=== PATIENT | male | born 1950 | race African-American/Black ===

== ENCOUNTER 2016-06-19 05:20 | Emergency (ER) | payer OTHER ==
[~2016-06-19 05:20] MED LIST: ATAZ300C PO; EMTR1TAB6 PO; GABA600T PO; NYST5ORA PO; OXYC60TA8 PO; RITO100T PO
--- NOTE | 2016-06-19 05:30 | NUR ---
CALLED FOR TRIAGE; SLEEPING IN LOBBY.
--- NOTE | 2016-06-19 05:52 | NUR ---
REFUSED TO OBTAIN VS AND STATED "AM GONNA GO".
== END 2016-06-19 05:55 | disposition left against medical advice (07) ==
LOC: ER 05:23
DX: Z53.21 Procedure and treatment not carried out due to patient leaving prior to being seen by health care provider (principal)

== ENCOUNTER 2016-06-24 15:12 | Emergency (ER) | payer OTHER ==
[~2016-06-24] VITALS: Ht 182.9 cm; Wt 81.6 kg
[2016-06-24 15:34] VITALS: BP 154/71
--- NOTE | 2016-06-24 16:00 | NUR ---
PT BIB SELF C/O N/V SINCE LAST NIGHT S/P DRINKING "A WEIRD COKE". REPORTS POOR PO TOLERANCE SINCE THEN. DENIES ABDOMINAL PAIN. DENIES DIARRHEA. NAD NOTED. IN ER BED 03.
[2016-06-24] MEDS ORDERED: IV NS 0.9% 1,000 ML BAG IV ONE (16:30)
[2016-06-24] MEDS ORDERED: ONDANSETRON HCL/PF 4 MG/2 ML VIAL IVP ONE (16:30)
[2016-06-24 16:34] LABS: BASOPHILS % (AUTO) 0.5 % (0.0-2.0); EOSINOPHILS # (AUTO) 0.2 /CMM (0.0-0.7); EOSINOPHILS % (AUTO) 5.8 % (0.0-6.0); HEMATOCRIT 32 % (39-51); HEMOGLOBIN 10.6 g/dL (13.5-17.5); LYMPHOCYTES # (AUTO) 1.1 /CMM (0.8-4.8); LYMPHOCYTES % (AUTO) 29.5 % (20.0-44.0); MEAN CORPUSCULAR HEMOGLOBIN 29 PG (26.0-33.0); MEAN CORPUSCULAR HGB CONC 33 g/dl (31.0-36.0); MEAN CORPUSCULAR VOLUME 88 fL (80-96); MONOCYTES # (AUTO) 0.4 /CMM (0.1-1.30); MONOCYTES % (AUTO) 10.5 % (2.0-12.0); NEUTROPHILS # (AUTO) 2.1 /CMM (1.8-8.9); NEUTROPHILS % (AUTO) 53.7 % (43.0-81.0); PLATELET COUNT (AUTO) 271 /CMM (150-450); RDW COEFFICIENT OF VARIATION 12.2 (11.5-15.0); RED BLOOD CELL COUNT(AUTO) 3.65 MIL/uL (4.5-6.0); WHITE BLOOD COUNT (AUTO) 3.8 K/uL (4.3-11.0)
[2016-06-24] MEDS ORDERED: ONDANSETRON HCL/PF 4 MG/2 ML VIAL ONE (16:34)
[2016-06-24] MEDS ORDERED: IV SET PRIMARY 1 EA INFUS.SET MC ONE (16:34)
[2016-06-24] MEDS ORDERED: IV NS 0.9% 1,000 ML ONE (16:34)
[2016-06-24 16:44] LABS: CALCIUM, SERUM 8.7 mg/dL (8.5-10.1); CREATININE 0.8 mg/dL (0.6-1.3); POTASSIUM 3.6 mmol/L (3.5-5.1)
[2016-06-24 16:50] LABS: ALBUMIN 3.1 g/dL (3.4-5.0); BILIRUBIN,DIRECT 0.3 mg/dL (0.0-0.2); BILIRUBIN,TOTAL 1.7 mg/dL (0.2-1.0)
--- NOTE | 2016-06-24 17:44 | NUR ---
PT TOLERATED PO LIQUIDS
--- NOTE | 2016-06-24 18:21 | NUR ---
IV removed. Catheter intact and site benign. Pressure and 4x4 applied to site. No bleeding noted. PT WAS OFFERED CRACKERS AND APPLESAUCE, PER MD, WHICH MADE PT ANGRY AND HE REFUSED TO LEAVE UNTIL HE SPOKE WITH THE DR. PT SPOKE WITH DR RILEY WHO EDUCATED THAT HE SHOULD EAT BLAND/SOFT FOODS D/T CMOMPLAINT OF N/V. PT BECAME MORE AGITATED AND RUSHED OUT OF ER, REFUSING DISCHARGE PAPERWORK AND DISCHARGE VITAL SIGNS.
== END 2016-06-24 18:25 | disposition home or self-care (01) ==
LOC: ER 15:14
DX: R11.2 Nausea with vomiting, unspecified (principal); M54.5 Low back pain; G89.29 Other chronic pain; B19.20 Unspecified viral hepatitis C without hepatic coma; Z59.0 Homelessness
CPT/HCPCS: 36415; 80048; 80076; 83690; 85025; 96361; 96374; 99284; A4606; J2405; J7030; Z7610

== ENCOUNTER 2018-07-02 19:54 | Inpatient (IN) | payer MEDICARE, OTHER ==
[~2018-07-02] VITALS: Ht 182.9 cm; Wt 77.6 kg
--- NOTE | 2018-07-02 20:19 | NUR ---
MIDSTERNAL CP W/ SOB X 3 DAYS, RT LEG PAIN FOR COUPLE DAYS. STATES PAIN LEVEL 8/10 IN CHEST AND 9/10 IN LEG. SATTING AT 100% ON RA. SKIN INTACT, NO ACUTE DISTRESS NOTED. HOOKED TO MONITOR. READY FOR EVAL.
[2018-07-02 20:35] LABS: BASOPHILS % (AUTO) 0.6 % (0.0-2.0); EOSINOPHILS % (AUTO) 0.5 % (0.0-6.0); HEMATOCRIT 41 % (39-51); HEMOGLOBIN 13.4 g/dL (13.5-17.5); LYMPHOCYTES # (AUTO) 1.2 /CMM (0.8-4.8); LYMPHOCYTES % (AUTO) 25.4 % (20.0-44.0); MEAN CORPUSCULAR HGB CONC 32 g/dl (31.0-36.0); MEAN CORPUSCULAR VOLUME 90 fL (80-96); MONOCYTES # (AUTO) 0.5 /CMM (0.1-1.30); MONOCYTES % (AUTO) 11.5 % (2.0-12.0); NEUTROPHILS # (AUTO) 2.9 /CMM (1.8-8.9); PLATELET COUNT (AUTO) 313 /CMM (150-450); RED BLOOD CELL COUNT(AUTO) 4.61 MIL/uL (4.5-6.0); WHITE BLOOD COUNT (AUTO) 4.7 K/uL (4.3-11.0)
[2018-07-02 20:45] LABS: CALCIUM, SERUM 9.5 mg/dL (8.5-10.1); CARBON DIOXIDE 30 mmol/L (21-32); CHLORIDE 102 mmol/L (98-107); CREATININE 1.1 mg/dL (0.6-1.3); GLUCOSE 91 mg/dL (74-106); POTASSIUM 4.1 mmol/L (3.5-5.1); SODIUM SERUM 139 mmol/L (136-145); UREA NITROGEN, BLOOD 12 mg/dL (7-18)
[2018-07-02 20:51] LABS: ALANINE AMINOTRANSFERASE 38 U/L (12-78); ALBUMIN 3.4 g/dL (3.4-5.0); ALKALINE PHOSPHATASE 91 U/L (46-116); ASPARTATE AMINOTRANSFERASE 37 U/L (15-37); BILIRUBIN,DIRECT 0.2 mg/dL (0.0-0.2); BILIRUBIN,TOTAL 0.5 mg/dL (0.2-1.0); TOTAL PROTEIN, SERUM 7.5 g/dL (6.4-8.2)
[2018-07-02] MEDS ORDERED: ASPIRIN 325 MG TABLET ONE (21:15)
[2018-07-02] MEDS ORDERED: NITROGLYCERIN 0.4 MG/TAB BOTTLE ONE (21:15)
[2018-07-02] MEDS ORDERED: ASPIRIN 325 MG TABLET PO ONE (21:30)
[2018-07-02] MEDS ORDERED: NITROGLYCERIN 0.4 MG/TAB BOTTLE SL ONE ×2 (21:30→23:45)
--- NOTE | 2018-07-02 22:00 | NUR ---
TRIED CALLING NURSE ROSAS; ADV SHE WILL CALL BACK
[2018-07-02] MEDS ORDERED: CT SWABBABLE VALVE TRANS SET 1 EA INFUS.SET MC ONE (22:10)
[2018-07-02] MEDS ORDERED: IV NS 0.9% 250 ML IV ONE (22:10)
[2018-07-02] MEDS ORDERED: IOHEXOL-350 100 ML VIAL IV ONE (22:10)
--- NOTE | 2018-07-02 22:16 | NUR ---
Patient is resting comfortably in bed with eyes closed. Easily aroused. VSS
[2018-07-02] MEDS ORDERED: IV NS 0.9% 1,000 ML IV PRN (22:22)
--- NOTE | 2018-07-02 22:29 | NUR ---
BED 321-2
[2018-07-02] MEDS ORDERED: MAGNESIUM HYDROXIDE 30 ML UDC PO PRN (22:30)
[2018-07-02] MEDS ORDERED: MAG HYDROX/AL HYDROX/SIMETH 30 ML UDC PO PRN (22:30)
[2018-07-02] MEDS ORDERED: CEFTRIAXONE 1 G in IV D5W 50 ML IV SCH (22:30)
[2018-07-02] MEDS ORDERED: Z GUARD REMEDY 2 OZ OINT TP PRN (22:30)
[2018-07-02] MEDS ORDERED: ACETAMINOPHEN 325 MG TABLET PO PRN (22:30)
[2018-07-02] MEDS ORDERED: ONDANSETRON HCL/PF 4 MG/2 ML VIAL IVP PRN (22:30)
[2018-07-02] MEDS ORDERED: MORPHINE SULFATE INJ 2 MG/ML DISP.SYRIN IV PRN (22:30)
[2018-07-02] MEDS ORDERED: ZOLPIDEM TARTRATE 5 MG TABLET PO PRN (22:30)
--- NOTE | 2018-07-02 23:41 | NUR ---
REPORT GIVEN TO LAURA GOMEZ FOR 321-2 T
[2018-07-03] MEDS ORDERED: AZITHROMYCIN 500 MG in IV D5W 250 ML IV SCH ×2
--- NOTE | 2018-07-03 00:56 | NUR ---
pt transfered to via [facility] with rn and emt.
--- NOTE | 2018-07-03 01:00 | NUR ---
SLAG WHEELER NOTES PATIENT ARRIVED ON THE UNIT 0100 VIA GURNEY. PATIENT IS A/O X 4. NO SIGNS OF RESPIRATORY DISTRESS. DENIES SHORTNESS OF BREATH AT THIS TIME. PATIENT STATES HE HAS LEG PAIN AT THIS TIME. PATIENT IS ON TELE MONITOR, CURRENT READING IS SR 93. SAFETY PRECAUTIONS IMPLEMENTED. CALL LIGHT WITHIN REACH. WILL CONTINUE TO MONITOR PATIENT THROUGHOUT THE REST OF MY SHIFT.
--- NOTE | 2018-07-03 01:05 | NUR ---
RN NOTES NITRO GIVEN PRIOR TO ADMISSION.
[2018-07-03] MEDS ORDERED: CEFTRIAXONE 1 G VIAL ONE (01:31)
[2018-07-03 01:35] VITALS: BP 140/84
[2018-07-03 01:46] VITALS: BP 140/84
[2018-07-03] MEDS ORDERED: AZITHROMYCIN 500 MG VIAL ONE (02:24)
[2018-07-03] MEDS: HYDROCODONE/APAP 5/325MG 1 EACH TABLET PO PRN ×2 (02:37→12:12)
[2018-07-03 04:00] VITALS: BP 130/80
[2018-07-03 05:09] LABS: BASOPHILS % (AUTO) 0.5 % (0.0-2.0); EOSINOPHILS % (AUTO) 0.7 % (0.0-6.0); HEMATOCRIT 35 % (39-51); HEMOGLOBIN 11.4 g/dL (13.5-17.5); LYMPHOCYTES # (AUTO) 1.2 /CMM (0.8-4.8); LYMPHOCYTES % (AUTO) 24.5 % (20.0-44.0); MEAN CORPUSCULAR HGB CONC 32 g/dl (31.0-36.0); MEAN CORPUSCULAR VOLUME 90 fL (80-96); MONOCYTES # (AUTO) 0.6 /CMM (0.1-1.30); MONOCYTES % (AUTO) 12.7 % (2.0-12.0); NEUTROPHILS # (AUTO) 2.9 /CMM (1.8-8.9); NEUTROPHILS % (AUTO) 61.6 % (43.0-81.0); PLATELET COUNT (AUTO) 309 /CMM (150-450); RED BLOOD CELL COUNT(AUTO) 3.91 MIL/uL (4.5-6.0); WHITE BLOOD COUNT (AUTO) 4.8 K/uL (4.3-11.0)
[2018-07-03 05:21] LABS: CALCIUM, SERUM 8.7 mg/dL (8.5-10.1); CREATININE 0.9 mg/dL (0.6-1.3); MAGNESIUM 1.8 mg/dL (1.8-2.4); PHOSPHORUS 3.2 mg/dL (2.5-4.9)
--- NOTE | 2018-07-03 06:31 | NUR ---
RN CLOSING NOTES PATIENT IS ASLEEP, RESTING IN BED COMFORTABLY. NO SIGNS OF RESPIRATORY DISTRESS NOTED. NO SIGNS OF SHORTNESS OF BREATH NOTED. PATIENT HAS NO DISCOMFORT NOTED AT THIS TIME. TELE READING IS SR 81. SAFETY PRECAUTIONS IMPLEMENTED. CALL LIGHT WITHIN REACH. WILL ENDORSE TO AM RN.
--- NOTE | 2018-07-03 07:05 | NUR ---
PRODUCTION SORTER NOTES Patient received in bed, awake, alert and verbally responsive. Patient complaining that he has been kept NPO since arrival in [place]. Explained to patient the procedure but patient is getting anxious and agitated. Will deliver breakfast as soon as pt seen by Panel Maker. Safety measures in place. No SOB/labored breathing noted. Not in any type of distress. Will continue to monitor and assess patient TELE: SR Navas
[2018-07-03] MEDS ORDERED: PANTOPRAZOLE 40 MG TABLET.DR PO SCH (07:30)
[2018-07-03 08:00] VITALS: BP 129/87
[2018-07-03] MEDS ORDERED: ASPIRIN 81 MG TAB.CHEW PO SCH (09:00)
[2018-07-03] MEDS ORDERED: IOHEXOL-350 100 ML VIAL IV ONE (09:27)
[2018-07-03] MEDS ORDERED: IV NS 0.9% 250 ML IV ONE (09:28)
[2018-07-03] MEDS ORDERED: CT SWABBABLE VALVE TRANS SET 1 EA INFUS.SET MC ONE (09:28)
[2018-07-03] MEDS ORDERED: METOPROLOL TARTRATE INJ 5 MG/5 ML AMPUL ONE (09:36)
[2018-07-03] MEDS ORDERED: METOPROLOL TARTRATE INJ 5 MG/5 ML AMPUL IVP ONE (10:00)
[2018-07-03] MEDS ORDERED: NITROGLYCERIN 4.9 GM SPRAY SL ONE (10:00)
[2018-07-03] MEDS ORDERED: IV NS 0.9% 500 ML IV ONE (10:00)
--- NOTE | 2018-07-03 10:34 | NUR ---
MS RN NOTES Patient transported to 2nd floor for CTA. Will assess when patient arrives and admin medication
--- NOTE | 2018-07-03 11:16 | NUR ---
MS RN NOTES Patient came back from 2nd floor in stable condition except for RLE complaints of pain. 121/75 77 20 98.7 95%
[2018-07-03] MEDS ORDERED: METOPROLOL TARTRATE 50 MG TABLET PO SCH (12:00)
[2018-07-03] MEDS ORDERED: LEVO500T75 PO (12:05)
[2018-07-03] MEDS ORDERED: METO50TA16 PO (12:05)
[2018-07-03] MEDS ORDERED: ASPI-1169 PO (12:05)
[2018-07-03 12:12] VITALS: BP 121/75
--- NOTE | 2018-07-03 13:15 | NUR ---
Social service consult requested for homelessness. Pt. is a 67 year old male who was admitted to [facility] for chest pain. SW met with pt. at bedside. Pt. was laying in his bed and looked disheveled. Pt. appeared tired. Pt. is oriented x 3. Pt. [facility] SW inquired further about his homelessness and pt. stated, Oh, Im not going to tell you that. Pt.s emergency contact is his sister, Marely Kaiser . Pt. states he has no income and does not receive government benefits. SW offered pt. homeless custodial referrals but pt. [place]. You wouldnt send your worst enemy there. No way. Pt. declined any further emergency custodial referrals. SW presented pt. with the [facility] Homeless Resource Directory, and pt. was receptive to the [employer] ([employer]) information. Pt. denied alcohol, recreational drug, marijuana, and cigarette use. Pt. denied a history of psychiatric diagnosis, and pt. denied suicidal ideation at this time. general farmworker provide the following additional custodial referrals: [facility] [address] [place] [address] , [facility] [address] [place] [address] , and [address] [place] [address]. in case pt. is in need of referrals in the future. Pt. will require a TAP card upon discharge. Homeless Waiver has been signed by pt. and placed in his chart. No other services needed at this time. SW is available if needed.
--- NOTE | 2018-07-03 13:40 | NUR ---
MS METAL SHEET ROLLER OPERATOR NURSE NOTE CONTACTED TOMAS GALLEGO NP REGARDING PT REQUEST FOR "SOMETHING FOR STOMACH ACID". ORDERS RECEIVED AND INITIATED.
[2018-07-03] MEDS: FAMOTIDINE (20 MG) 20 MG TABLET PO SCH ×3 (14:45→16:06)
--- NOTE | 2018-07-03 15:08 | NUR ---
MS RN NOTES Discharge papers provided to patient. Attempted to provide discharge instructions but patient continues to yell and choose not to pay attention. Patient refused to sign discharge papers and demanding me to leave the room. Will provide patient time to relax. Will try again to have discharge papers signed
--- NOTE | 2018-07-03 15:08 | NUR ---
MS RN NOTES Patient refused pepcid after requesting for the medication to be ordered. Explained risks vs benefits. Offered x3 but continue to refused and demanded me to leave the room and switch with another nurse.
--- NOTE | 2018-07-03 15:45 | NUR ---
MS RN NOTES Attempted to remove IV access but patient refused to have IV access removed by me. Requested another RN to have it removed and pt still refused. Called another RN to attemp to remove but patient continues to refuse. Security guards at bedside. Called CN to assist with the situation.
--- NOTE | 2018-07-03 16:07 | NUR ---
MS RN NOTES Patient won't let IV access removed unless he received pepcid from another nurse. CN gave patient pepcid and accepted it.
--- NOTE | 2018-07-03 16:10 | NUR ---
MS RN NOTES Patient changing clothes and getting ready to leave.
--- NOTE | 2018-07-03 16:35 | NUR ---
MS RN NOTES CN was able to convince patient to remove his IV access out. Cath tip intact with no bleeding noted. No complaints of pain.
--- NOTE | 2018-07-03 16:45 | NUR ---
MS RN NOTES Patient escorted out to the lobby by two security guards via wheelchair. No complaints of pain or discomfort. Not in any type of distress. No SOB/labored breathing noted. Discharge papers on hand. Tap card provided and handed to the patient. All belongings with patient. Forms refused to be signed by patient. All IV access removed.
== END 2018-07-03 16:40 | disposition home or self-care (01) | DRG 178 ==
LOC: ER 20:09 → TELE 22:42 → MED 07-03 10:42
PROVIDERS: ADMIT Nurse Practitioner Acute Care; ATTEND Nurse Practitioner Acute Care
DX: J15.6 Pneumonia due to other Gram-negative bacteria (principal); I50.32 Chronic diastolic (congestive) heart failure; F12.90 Cannabis use, unspecified, uncomplicated; I71.2 Thoracic aortic aneurysm, without rupture; M94.0 Chondrocostal junction syndrome [Tietze]; G89.29 Other chronic pain; Z87.01 Personal history of pneumonia (recurrent); Z59.0 Homelessness; B19.20 Unspecified viral hepatitis C without hepatic coma
CPT/HCPCS: 36415; 71045-TC; 75574; 80048-TC; 80061-TC; 80076-TC; 83735-TC; 84100-TC; 84484-TC; 85025-TC; 85378-TC; 85730-TC; 87081-TC; 93307-TC; 93971-TC; G0378; J0456; J0696; J3490; J7030; J7040; J7050; J7060; Q9967

== ENCOUNTER 2019-06-16 10:58 | Emergency (ER) | payer MEDICARE, OTHER ==
[~2019-06-16] VITALS: Ht 167.6 cm; Wt 61.2 kg
[~2019-06-16 10:58] MED LIST changes: +ASPI-1169 PO; +LEVO500T75 PO; +METO50TA16 PO
[2019-06-16 11:10] VITALS: BP 145/84
--- NOTE | 2019-06-16 11:16 | NUR ---
Dr. Patiño at bedside for eval
[2019-06-16] MEDS ORDERED: HYDROCODONE/APAP 5/325MG 1 EACH TABLET ONE (11:27)
[2019-06-16] MEDS ORDERED: HYDROCODONE/APAP 5/325MG 1 EACH TABLET PO ONE (11:30)
--- NOTE | 2019-06-16 11:43 | NUR ---
Patient discharged to home in stable condition. Written and verbal after care instructions given. Patient verbalizes understanding of instruction.
== END 2019-06-16 11:42 | disposition home or self-care (01) ==
LOC: ER 11:05
DX: G89.29 Other chronic pain (principal); M54.9 Dorsalgia, unspecified; Z90.89 Acquired absence of other organs; Z98.890 Other specified postprocedural states; Z59.0 Homelessness; Z79.899 Other long term (current) drug therapy

== ENCOUNTER 2022-05-05 20:46 | Emergency (ER) | payer MEDICARE, OTHER ==
[~2022-05-05] VITALS: Ht 177.8 cm; Wt 74.8 kg
[~2022-05-05 20:46] MED LIST changes: +LEVO500T23 PO; -LEVO500T75 PO
--- NOTE | 2022-05-05 21:11 | NUR ---
called for triage not in the waiting room
--- NOTE | 2022-05-05 21:31 | NUR ---
called for triage not in the waiting room
--- NOTE | 2022-05-05 21:42 | NUR ---
called for triage not in the waiting room
--- NOTE | 2022-05-05 21:55 | NUR ---
TO ER BED 1. BIBS C/O LOWER BACK PAIN X 5 DAYS. HX CHRONIC BACK PAIN. PT IS ALERT AND ORIENTED. AMBULATORY W/ STEADY GAIT. RR EVEN AND NON LABORED.CONNECTED TO MONITOR
--- NOTE | 2022-05-05 22:04 | NUR ---
Patient discharged to home in stable condition. Written and verbal after care instructions given. Patient verbalizes understanding of instruction.
[2022-05-05 22:06] VITALS: BP 138/84
== END 2022-05-05 22:07 | disposition home or self-care (01) ==
LOC: ER 20:59
DX: M54.50 Low back pain, unspecified (principal); Z90.49 Acquired absence of other specified parts of digestive tract; Z59.00 Homelessness unspecified; Z79.82 Long term (current) use of aspirin; Z79.899 Other long term (current) drug therapy

== ENCOUNTER 2023-10-23 07:11 | Emergency (ER) | payer OTHER ==
[~2023-10-23] VITALS: Ht 162.6 cm; Wt 70.3 kg
[2023-10-23 07:14] VITALS: BP 145/77; TEMP 98; O2SAT 95
== END 2023-10-23 07:41 | disposition home or self-care (01) ==
LOC: ER 07:18
DX: G89.29 Other chronic pain (principal); M54.9 Dorsalgia, unspecified; Z76.0 Encounter for issue of repeat prescription; Z91.148 Patient's other noncompliance with medication regimen for other reason; Z90.49 Acquired absence of other specified parts of digestive tract; Z98.890 Other specified postprocedural states; Z59.00 Homelessness unspecified

== ENCOUNTER 2024-10-26 18:29 | Inpatient (IN) | payer MEDICARE, OTHER ==
[~2024-10-26] VITALS: Ht 182.9 cm; Wt 79.6 kg
[2024-10-26 19:29] LABS: PLATELET COUNT (AUTO) 167 K/uL (150-450); RED BLOOD CELL COUNT(AUTO) 4.07 MIL/uL (4.5-6.0); RED CELL DISTRIBUTION WIDTH 13.5 % (11.5-15.0); WHITE BLOOD COUNT (AUTO) 7.7 K/uL (4.3-11.0)
[2024-10-26 19:40] LABS: CALCIUM, SERUM 9.3 mg/dL (8.5-10.1); CREATININE 1.4 mg/dL (0.6-1.3); SODIUM SERUM 142 mmol/L (136-145); UREA NITROGEN, BLOOD 38 mg/dL (7-18)
[2024-10-26] MEDS: IV NS 0.9% 1,000 ML BAG IV ONE (19:42)
[2024-10-26 19:46] LABS: ASPARTATE AMINOTRANSFERASE 93 U/L (15-37); TOTAL PROTEIN, SERUM 8.2 g/dL (6.4-8.2)
[2024-10-26] MEDS ORDERED: ASPIRIN 325 MG TABLET ONE (22:00)
[2024-10-26] MEDS: ASPIRIN 81 MG TAB.CHEW PO ONE (22:01)
[2024-10-26 22:25] VITALS: BP 134/88; TEMP 97.5; O2SAT 98
[2024-10-26 23:00] VITALS: BP 134/88; TEMP 97.5; O2SAT 98
[2024-10-26] MEDS ORDERED: ONDANSETRON HCL/PF 4 MG/2 ML VIAL IVP PRN (23:00)
[2024-10-26] MEDS ORDERED: ACETAMINOPHEN 325 MG TABLET PO PRN (23:00)
[2024-10-26] MEDS ORDERED: MAG HYDROX/AL HYDROX/SIMETH 30 ML UDC PO PRN (23:00)
[2024-10-26] MEDS ORDERED: Z GUARD REMEDY 4 OZ OINT TP PRN (23:00)
[2024-10-26] MEDS: ENOXAPARIN SODIUM 80 MG/0.8 ML DISP.SYRIN SQ SCH (23:34)
[2024-10-27 04:00] VITALS: BP 121/77; TEMP 98.4; O2SAT 95
[2024-10-27] MEDS: IV NS 0.9% 1,000 ML IV SCH (05:22)
[2024-10-27 06:52] LABS: LDL 70.0 mg/dL (0-99)
[2024-10-27 07:04] LABS: PLATELET COUNT (AUTO) 160 K/uL (150-450); RED BLOOD CELL COUNT(AUTO) 4.05 MIL/uL (4.5-6.0); RED CELL DISTRIBUTION WIDTH 13.8 % (11.5-15.0); WHITE BLOOD COUNT (AUTO) 4.7 K/uL (4.3-11.0)
[2024-10-27 07:05] LABS: APPEARANCE,URINE CLEAR (CLEAR); BLOOD, URINE TRACE-INTA Ery/uL (NEGATIVE); LEUKOCYTE ESTERASE ,URINE NEGATIVE (NEGATIVE); NITRITE, URINE NEGATIVE (NEGATIVE); UGLUCOSE NEGATIVE (NEGATIVE)
[2024-10-27 07:15] LABS: INR 1.09 (0.91-1.10)
[2024-10-27 07:16] LABS: CALCIUM, SERUM 9.0 mg/dL (8.5-10.1); CREATININE 1.1 mg/dL (0.6-1.3); PHOSPHORUS 2.9 mg/dL (2.5-4.9); SODIUM SERUM 144.0 mmol/L (136-145); UREA NITROGEN, BLOOD 28.0 mg/dL (7-18)
[2024-10-27 07:20] LABS: ADD URINE CULTURE NO; HYALINE CASTS, URINE Rare /LPF (None Seen); SQUAMOUS EPITHELIAL CELL,UR 0-2 /HPF (None Seen)
[2024-10-27] MEDS: PANTOPRAZOLE 40 MG TABLET.DR PO SCH (07:30)
[2024-10-27] MEDS ORDERED: SULF1TAB48 PO (08:30)
[2024-10-27] MEDS ORDERED: MULT-594 PO (08:30)
[2024-10-27] MEDS ORDERED: DRON2.5C18 PO (08:30)
[2024-10-27] MEDS ORDERED: BICT1TAB PO (08:30)
[2024-10-27] MEDS: ASPIRIN EC 81 MG TABLET.DR PO SCH (08:38)
[2024-10-27 08:48] VITALS: BP 115/86; TEMP 97.5; O2SAT 98
[2024-10-27] MEDS: BIKTARVY PO SCH (11:00)
[2024-10-27 12:21] LABS: CREATININE, URINE 207.4 MG/DL (30.0-125.0); URINE SODIUM, RANDOM 23.0 mmol/l (40-220); URINE TOTAL PROTEIN 55.2 mg/dL (0-11.9)
[2024-10-27 13:16] VITALS: BP_SYST 109; BP_SYST 125; BP_DIAS 60; BP_DIAS 98; TEMP 97.9; O2SAT 98
[2024-10-27] MEDS ORDERED: IV NS 0.9% 250 ML IV ONE (16:07)
[2024-10-27] MEDS ORDERED: IOHEXOL-350 100 ML VIAL IV ONE (16:07)
[2024-10-27 16:27] VITALS: BP 130/82; TEMP 98.1; O2SAT 98
[2024-10-27] MEDS ORDERED: METOPROLOL TARTRATE INJ 5 MG/5 ML AMPUL ONE (16:44)
[2024-10-27] MEDS: NITROGLYCERIN 0.4 MG/TAB BOTTLE SL ONE (16:46)
[2024-10-27] MEDS: METOPROLOL TARTRATE INJ 5 MG/5 ML AMPUL IVP PRN (16:48)
[2024-10-27 20:00] VITALS: BP 132/84; TEMP 97.5; O2SAT 96
[2024-10-27] MEDS: ENOXAPARIN SODIUM 80 MG/0.8 ML DISP.SYRIN SQ SCH (22:35)
[2024-10-28 04:00] VITALS: BP 121/78; TEMP 97.5; O2SAT 96
[2024-10-28 05:08] LABS: FOLIC ACID 14.4 ng/mL (>3.0)
[2024-10-28] MEDS: IV NS 0.9% 1,000 ML IV PRN (05:15)
[2024-10-28 07:28] LABS: PLATELET COUNT (AUTO) 144 K/uL (150-450); RED BLOOD CELL COUNT(AUTO) 3.60 MIL/uL (4.5-6.0); RED CELL DISTRIBUTION WIDTH 13.5 % (11.5-15.0); WHITE BLOOD COUNT (AUTO) 3.3 K/uL (4.3-11.0)
[2024-10-28 08:40] LABS: ASPARTATE AMINOTRANSFERASE 78.0 U/L (15-37); CALCIUM, SERUM 8.3 mg/dL (8.5-10.1); CREATININE 1.0 mg/dL (0.6-1.3); PHOSPHORUS 2.7 mg/dL (2.5-4.9); SODIUM SERUM 140.0 mmol/L (136-145); TOTAL PROTEIN, SERUM 6.6 g/dL (6.4-8.2); UREA NITROGEN, BLOOD 20.0 mg/dL (7-18)
[2024-10-28 08:47] LABS: CREATINE KINASE, TOTAL 2602.0 U/L (39-308)
[2024-10-28] MEDS ORDERED: GLEC1TAB PO (09:05)
[2024-10-28] MEDS: MAVYRET PO SCH (12:10)
[2024-10-28] MEDS: MAGNESIUM OXIDE 400 MG TABLET PO ONE (12:59)
[2024-10-28 16:30] VITALS: BP 141/83; TEMP 97.2; O2SAT 94
[2024-10-28 22:31] VITALS: BP 139/91; TEMP 97.5; O2SAT 97
[2024-10-29] MEDS: ALBUTEROL FS 2.5 MG/0.5 ML VIAL.NEB NEB PRN (03:58)
[2024-10-29] MEDS: IPRATROPIUM NEB FS 0.5 MG/2.5 ML AMPUL.NEB NEB PRN (03:58)
[2024-10-29 03:59] VITALS: O2SAT 90
[2024-10-29 04:14] VITALS: O2SAT 97; O2SAT 99
[2024-10-29 06:35] LABS: CALCIUM, SERUM 8.9 mg/dL (8.5-10.1); CREATININE 0.9 mg/dL (0.6-1.3); SODIUM SERUM 140.0 mmol/L (136-145); UREA NITROGEN, BLOOD 20.0 mg/dL (7-18)
[2024-10-29 06:41] LABS: PLATELET COUNT (AUTO) 154 K/uL (150-450); RED BLOOD CELL COUNT(AUTO) 3.76 MIL/uL (4.5-6.0); RED CELL DISTRIBUTION WIDTH 13.2 % (11.5-15.0); WHITE BLOOD COUNT (AUTO) 3.8 K/uL (4.3-11.0)
[2024-10-29 07:07] LABS: PTH, INTACT 13 pg/mL (15-65)
[2024-10-29 07:30] VITALS: BP 144/95; TEMP 97.3; O2SAT 99
[2024-10-29 16:00] VITALS: BP 128/88; TEMP 98.1; O2SAT 97
[2024-10-29] MEDS: MORPHINE SULFATE INJ 2 MG/ML DISP.SYRIN IV ONE (17:35)
[2024-10-29 20:00] VITALS: BP 139/91; TEMP 97.9; O2SAT 96
[2024-10-30] MEDS: HYDROCODONE/APAP 5/325MG TABLET PO PRN (00:17)
[2024-10-30 06:21] LABS: CALCIUM, SERUM 8.6 mg/dL (8.5-10.1); CREATININE 1.0 mg/dL (0.6-1.3); SODIUM SERUM 141.0 mmol/L (136-145); UREA NITROGEN, BLOOD 25.0 mg/dL (7-18)
[2024-10-30 06:24] LABS: PLATELET COUNT (AUTO) 165 K/uL (150-450); RED BLOOD CELL COUNT(AUTO) 3.83 MIL/uL (4.5-6.0); RED CELL DISTRIBUTION WIDTH 13.0 % (11.5-15.0); WHITE BLOOD COUNT (AUTO) 3.6 K/uL (4.3-11.0)
[2024-10-30 08:00] VITALS: BP 126/91; TEMP 98.4; O2SAT 99
[2024-10-30 08:24] LABS: EOSINOPHILS % (MANUAL) 7 % (0-4); LYMPHOCYTES % (MANUAL) 28 % (16-48); MONOCYTES % (MANUAL) 12 % (0-11.0); NEUTROPHILS % (MANUAL) 53 (42-76); PLATELET ESTIMATE ADEQUATE
[2024-10-30 16:00] VITALS: BP 130/89; TEMP 98.5; O2SAT 97
[2024-10-30] MEDS: POLYETHYLENE GLYCOL 3350 17 GM POWD.PACK PO SCH (18:00)
[2024-10-30 20:00] VITALS: BP 134/82; TEMP 97.7; O2SAT 96
[2024-10-30] MEDS: SENNOSIDES/DOCUSATE SODIUM 1 TAB TABLET PO SCH (22:00)
[2024-10-30] MEDS: GUAIFENESIN/D-METHORPHAN HB 5 ML UDC PO PRN (22:56)
[2024-10-31 08:00] VITALS: BP 111/83; TEMP 97.7; O2SAT 94
[2024-10-31 16:00] VITALS: BP 117/73; TEMP 98.5; O2SAT 98
[2024-10-31 16:45] VITALS: O2SAT 97
[2024-10-31 20:00] VITALS: BP 110/77; TEMP 98.1; O2SAT 95
[2024-11-01 08:00] VITALS: BP 126/76; TEMP 98.4; O2SAT 96
[2024-11-01 16:00] VITALS: BP 127/83; TEMP 97.7; O2SAT 98
[2024-11-01 20:00] VITALS: BP 125/75; TEMP 98.2; O2SAT 98
[2024-11-02 05:58] LABS: PLATELET COUNT (AUTO) 208 K/uL (150-450); RED BLOOD CELL COUNT(AUTO) 4.02 MIL/uL (4.5-6.0); RED CELL DISTRIBUTION WIDTH 13.3 % (11.5-15.0); WHITE BLOOD COUNT (AUTO) 4.2 K/uL (4.3-11.0)
[2024-11-02 06:04] LABS: CALCIUM, SERUM 8.8 mg/dL (8.5-10.1); CREATININE 1.0 mg/dL (0.6-1.3); SODIUM SERUM 140.0 mmol/L (136-145); UREA NITROGEN, BLOOD 24.0 mg/dL (7-18)
[2024-11-02 06:09] LABS: CREATINE KINASE, TOTAL 256.0 U/L (39-308)
[2024-11-02 07:30] VITALS: BP 133/77; TEMP 97.9; O2SAT 97
[2024-11-02 10:07] LABS: METHYLMALONIC ACID 171.0 nmol/L (0-378)
[2024-11-02 16:00] VITALS: BP 133/77; TEMP 97.9; O2SAT 97
[2024-11-02] MEDS: MAGNESIUM HYDROXIDE 30 ML UDC PO PRN (19:48)
[2024-11-02 20:00] VITALS: BP 143/89; TEMP 98.1; O2SAT 96
[2024-11-03 20:00] VITALS: BP 114/81; TEMP 97.9; O2SAT 96
[2024-11-04 08:00] VITALS: BP 155/133; TEMP 97.9; O2SAT 98
[2024-11-04 08:07] LABS: VITAMIN B1 THIAMINE,WB 76.6 nmol/L (66.5-200.0)
[2024-11-06 16:09] LABS: *SPE A/G RATIO 1.0 (0.7-1.7); *SPE ALBUMIN 3.1 g/dL (2.9-4.4); *SPE ALPHA-1-GLOBULIN 0.2 g/dL (0.0-0.4); *SPE ALPHA-2-GLOBULIN 0.5 g/dL (0.4-1.0); *SPE BETA GLOBULIN 0.7 g/dL (0.7-1.3); *SPE GLOBULIN, TOTAL 3.0 g/dL (2.2-3.9); *SPE M-SPIKE Not Observed g/dL (Not Observed); *SPE PROTEIN TOTAL 6.1 g/dL (6.0-8.5); *SPEGAMMA GLOBULIN 1.7 g/dL (0.4-1.8)
== END 2024-11-04 12:13 | disposition home or self-care (01) | DRG 682 ==
LOC: ER 18:35 → TELE 21:34 → MED 10-28 18:36
PROVIDERS: ADMIT Registered Nurse Psychiatric/Mental Health; ATTEND Nurse Practitioner Family
DX: N17.0 Acute kidney failure with tubular necrosis (principal); I21.A1 Myocardial infarction type 2; M62.82 Rhabdomyolysis; M84.48XA Pathological fracture, other site, initial encounter for fracture; Z59.00 Homelessness unspecified; E86.0 Dehydration; I50.9 Heart failure, unspecified; I25.2 Old myocardial infarction; M89.8X9 Other specified disorders of bone, unspecified site; Z79.82 Long term (current) use of aspirin; Z94.7 Corneal transplant status; Z87.01 Personal history of pneumonia (recurrent); Z87.891 Personal history of nicotine dependence; D63.8 Anemia in other chronic diseases classified elsewhere; H54.61 Unqualified visual loss, right eye, normal vision left eye; I71.21 Aneurysm of the ascending aorta, without rupture; K59.00 Constipation, unspecified; E80.6 Other disorders of bilirubin metabolism; R73.9 Hyperglycemia, unspecified; Z86.19 Personal history of other infectious and parasitic diseases; R53.1 Weakness; E83.9 Disorder of mineral metabolism, unspecified; M51.369 Other intervertebral disc degeneration, lumbar region without mention of lumbar back pain or lower extremity pain; M48.061 Spinal stenosis, lumbar region without neurogenic claudication; Z82.49 Family history of ischemic heart disease and other diseases of the circulatory system; Z82.3 Family history of stroke
CPT/HCPCS: 36415; 70450-TC; 71045-TC; 72131-TC; 75574; 76700-TC; 80048-TC; 80053-TC; 80061-TC; 80076-TC; 81001; 82550-TC; 82553; 82570-TC; 82607-TC; 83735-TC; 83921; 83970; 84100-TC; 84155; 84165; 84300-TC; 84425; 84443-TC; 84484-TC; 85025-TC; 85027-TC; 85610-TC; 87081-TC; 93970-TC; 94760-TC; 94799-TC; 97110-TC; 97112-TC; 97116-TC; 97530-TC; 97535-TC; A4223; G0378; J1650; J2270; J3490; J7030; J7050; Q9967